=== PATIENT | female | born 1985 | race Caucasian/White ===

== ENCOUNTER 2016-08-21 17:20 | Emergency (ER) | payer MEDICAID, OTHER ==
[2016-08-21 18:06] VITALS: BP 118/67; PULSE 64; RESP 18; TEMP 98.2; O2SAT 100
--- NOTE | 2016-08-21 18:14 | ED PDOC ---
HPI: Wound Care - HPI Time Seen by Provider: 08/21/16 17:52 Chief Complaint (Nursing): Abnormal Skin Integrity Chief Complaint (Provider): wound check History Per: Patient Exam Limitations: no limitations Additional Complaint(s): Opal Morgan is a 31 year old female, with no previous medical history, who presents to the ED for the evaluation of a wound she sustained 1 month ago while in [facility]. Pt reports to tripping and falling sustaining a laceration on the chin. Pt reports to getting the laceration stitched and reports stitches were removed 1 week later also in [facility]. Pt reports to noticing blood from the laceration while cleaning the area today. Pt is concerned of a retained stitch inside. Pt denies any fever, chills, pain (contrary to triage note) or drainage from the site. Pt denies any additional complaints at this time. PMD: none provided Past Medical History Reviewed: Historical Data, Nursing Documentation, Vital Signs Vital Signs: Last Vital Signs Temp 98.2 F 08/21/16 17:48 Pulse 64 08/21/16 17:48 Resp 18 08/21/16 17:48 BP 118/67 08/21/16 17:48 Pulse Ox 100 08/21/16 17:48 - Medical History PMH: No Chronic Diseases - Family History Family History: States: Unknown Family Hx - Immunization History Hx Tetanus Toxoid Vaccination: No Hx Influenza Vaccination: No Hx Pneumococcal Vaccination: No - Home Medications Home Medications: Ambulatory Orders Medication Instructions Recorded Clotrimazole 1% Cream [Lotrimin 1% 1 applic TOP BID #2 tube 12/24/15 CREAM] Misoprostol [Cytotec] 200 mcg PO Q12 #8 tablet 01/02/16 - Allergies Allergies/Adverse Reactions: Allergies Allergy/AdvReac Type Severity Reaction Status Date / Time No Known Allergies Allergy Verified 12/24/15 12:24 Review of Systems ROS Statement: Except As Marked, All Systems Reviewed And Found Negative Constitutional: Negative for: Fever, Other (pain to wound area or drainage ) Physical Exam - Reviewed Nursing Documentation Reviewed: Yes Vital Signs Reviewed: Yes - Physical Exam Appears: Positive for: Well, Non-toxic, No Acute Distress Head Exam: Positive for: ATRAUMATIC, NORMAL INSPECTION, NORMOCEPHALIC Skin: Positive for: Normal Color, Warm, Dry. Negative for: Rash Neurologic/Psych: Positive for: Alert, Oriented Comments: Healed 1.5 cm linear wound on the chin with no surrounding erythema, swelling or break in skin integrity. No bleeding. - ECG O2 Sat by Pulse Oximetry: 100 (RA) Pulse Ox Interpretation: Normal Medical Decision Making Medical Decision Making: Initial Impression: Wound check Initial Plan: * physical exam * disposition Scribe Attestation: Documented by Neelam Villarreal, acting as a scribe for Hansel Harris PA-C. Provider Scribe Attestation: All medical record entries made by the Scribe were at my direction and personally dictated by me. I have reviewed the chart and agree that the record accurately reflects my personal performance of the history, physical exam, medical decision making, and the department course for this patient. I have also personally directed, reviewed, and agree with the discharge instructions and disposition. Disposition - Clinical Impression Clinical Impression: Visit for wound check - Patient ED Disposition Is Patient to be Admitted: No - Disposition Referrals: [facility] [Outside] Disposition: Routine/Home Disposition Time: 18:09 Condition: STABLE Additional Instructions: Use Mederma or Vitamin E ointment over wound for scar minimization. Instructions: Acute Wound Care (ED)
== END 2016-08-21 18:15 | disposition home or self-care (01) ==
LOC: H.ER 17:20
DX: Z51.89 Encounter for other specified aftercare (principal)

== ENCOUNTER 2016-09-11 20:16 | Emergency (ER) | payer OTHER ==
[2016-09-11] MEDS ORDERED: Sodium Chloride 0.9% 1,000 ML IV STA (21:42)
--- NOTE | 2016-09-11 21:48 | ED PDOC ---
HPI: Female Pain Time Seen by Provider: 09/11/16 21:44 Chief Complaint (Nursing): Female Genitourinary Chief Complaint (Provider): ABDOMINAL PAIN History Per: Patient (31 Y/O FEMALE M1 HERE FOR EVALUATION OF VAGINAL BLEEDING AND LOWER ABDOMINAL PAIN. STATES SHE HAS HAD 2 DAYS VAGINAL BLEEDING. HAS HAD SHORT MENSES 09/05. HAS MISSED DOSE OF OCP AND TOOK PLAN B SUBSEQUENTLY 08/09.) Past Medical History Reviewed: Historical Data, Nursing Documentation, Vital Signs Vital Signs: Last Vital Signs Temp 98.2 F 09/11/16 20:20 Pulse 80 09/11/16 20:20 Resp 18 09/11/16 20:20 BP 114/65 09/11/16 20:20 Pulse Ox 99 09/11/16 20:20 - Family History Family History: States: Unknown Family Hx - Immunization History Hx Tetanus Toxoid Vaccination: No Hx Influenza Vaccination: No Hx Pneumococcal Vaccination: No - Home Medications Home Medications: Ambulatory Orders Medication Instructions Recorded Clotrimazole 1% Cream [Lotrimin 1% 1 applic TOP BID #2 tube 12/24/15 CREAM] Misoprostol [Cytotec] 200 mcg PO Q12 #8 tablet 01/02/16 - Allergies Allergies/Adverse Reactions: Allergies Allergy/AdvReac Type Severity Reaction Status Date / Time No Known Allergies Allergy Verified 12/24/15 12:24 Review of Systems ROS Statement: Except As Marked, All Systems Reviewed And Found Negative Physical Exam - Reviewed Nursing Documentation Reviewed: Yes Vital Signs Reviewed: Yes - Physical Exam Appears: Positive for: Well, Non-toxic, No Acute Distress Head Exam: Positive for: ATRAUMATIC, NORMAL INSPECTION, NORMOCEPHALIC Skin: Positive for: Normal Color, Warm, DRY Eye Exam: Positive for: EOMI, Normal appearance, PERRL ENT: Positive for: Normal ENT Inspection Neck: Positive for: Normal, Painless ROM Cardiovascular/Chest: Positive for: Regular Rate, Rhythm Respiratory: Positive for: CNT, Normal Breath Sounds Gastrointestinal/Abdominal: Positive for: Normal Exam, Bowel Sounds, Soft Pelvic Exam: Positive for: Active Bleeding (small amount of bleeding noted), Tender Adnexa (tender left adnexa mild), Tender Uterus Back: Positive for: Normal Inspection Extremity: Positive for: Normal ROM Neurologic/Psych: Positive for: Alert, Oriented - Laboratory Results Result Diagrams: 09/11/16 21:52 05/04/17 21:52 - ECG O2 Sat by Pulse Oximetry: 99 - Progress ED Course And Treament: Possible intrauterine gestational sac however no yolk sac or definite pole identified. No extrauterine gestational sac identified. In a patient with a positive test, differential diagnosis includes early IUP, AB, and ectopic . Short term serial beta- hCG levels are recommended along with follow-up ultrasound. Right ovarian cyst. Thank you for allowing us to participate in the care of your patient. Dictated and Authenticated by: Neelam Ibrahim MD d/w Dr. March. Patient to return to ED in 2 days for repeat beta HCG. 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
[2016-09-11 22:00] LABS: BASO % 0.4 % (0.0-2.0); EOS # 0.1 K/uL (0.0-0.7); EOS % 0.6 % (0.0-4.0); HEMATOCRIT 36.8 % (34.0-47.0); LYMPH # 2.1 K/uL (1.0-4.3); LYMPH % 22.7 % (20.0-40.0); MEAN CELL VOLUME 89.5 fl (81.0-99.0); MEAN CORPUSCULAR HEMOGLOBIN 30.6 pg (27.0-31.0); MEAN CORPUSCULAR HGB CONC 34.2 g/dL (33.0-37.0); MEAN PLATELET VOLUME 8.3 fl (7.2-11.7); MONO # 0.6 K/uL (0.0-0.8); MONO % 6.5 % (0.0-10.0); NEUT # 6.4 K/uL (1.8-7.0); NEUT % 69.8 % (50.0-75.0); RED CELL DISTRIBUTION WIDTH 13.1 % (11.5-14.5); WHITE BLOOD COUNT 9.2 K/uL (4.8-10.8)
[2016-09-11 22:10] LABS: ALB/GLOB RATIO 1.2 (1.0-2.1); ALKALINE PHOSPHATASE 51 U/L (38-126); ALT/SGPT 32 U/L (9-52); AST/SGOT 28 U/L (14-36); BILIRUBIN,TOTAL 0.4 mg/dl (0.2-1.3); BLOOD UREA NITROGEN 8 mg/dl (7-17); CARBON DIOXIDE 25 mmol/L (22-30); CHLORIDE 104 mmol/L (98-107); GFR AFRICAN-AMERICAN > 60; GLUCOSE,RANDOM 97 mg/dL (65-105); POTASSIUM 3.6 MMOL/L (3.6-5.0); SODIUM 138 mmol/l (132-148); TOTAL PROTEIN 7.8 G/DL (6.3-8.2)
[2016-09-11 22:59] LABS: PARTIAL THROMBOPLASTIN TIME 42.2 SECONDS (23.3-32.5)
--- NOTE | 2016-09-12 00:06 | US ---
EXAM: US , Transvaginal CLINICAL HISTORY: 31 years old, female; Pain; Other: Pelvic pain; Gestational age or lmp: 08/09/16; Additional info: R/O ectopic TECHNIQUE: Real-time transvaginal obstetrical ultrasound of the maternal pelvis and a first trimester with image documentation. Transvaginal imaging was used for better evaluation of the fetus and adnexa. EXAM DATE/TIME: 09/11/2016 9:31 PM COMPARISON: No relevant prior studies available. FINDINGS: The uterus measures 7 x 3 x 5 cm. The endometrium measures 9 mm. The cervix measures 3.7 cm. There is a small round 3 mm fluid-filled structure within the lower endometrium. There is a questionable tiny echogenic structure. No ringlike structure to suggest yolk sac. There is a 1.6 cm simple cyst in the maternal right ovary. The maternal left ovary is normal. Color flow and doppler vascular waveforms were demonstrated to both maternal ovaries. No adnexal masses. No significant free fluid. IMPRESSION: Possible intrauterine gestational sac however no yolk sac or definite pole identified. No extrauterine gestational sac identified. In a patient with a positive test, differential diagnosis includes early IUP, AB, and ectopic . Short term serial beta-hCG levels are recommended along with follow-up ultrasound. Right ovarian cyst.
[2016-09-12 02:56] VITALS: BP 118/74; PULSE 79; RESP 16; TEMP 98.1; O2SAT 100
== END 2016-09-12 00:43 | disposition home or self-care (01) ==
LOC: H.ER 20:16
DX: O20.0 Threatened abortion (principal); R10.2 Pelvic and perineal pain; N83.201 Unspecified ovarian cyst, right side

== ENCOUNTER 2017-02-09 08:57 | Emergency (ER) | payer MEDICAID, OTHER ==
[2017-02-09 09:01] VITALS: BP 100/55; PULSE 74; TEMP 98; O2SAT 100; BMI 24.0
[2017-02-09 09:11] VITALS: RESP 16
--- NOTE | 2017-02-09 09:25 | ED PDOC ---
HPI: Female Pain Time Seen by Provider: 02/09/17 09:19 Chief Complaint (Nursing): Female Genitourinary History Per: Patient (Dysuria and frequency assoc with suprapubivc pain x 3 days. No fever. No imprivement with Uristat.) Onset/Duration Of Symptoms: Days (3) Severity: Mild Pain Scale Rating Of: 2 Quality Of Discomfort: Burning Associated Symptoms: Urinary Symptoms. denies: Fever, Nausea, Vomiting, Diarrhea Abnormal Vaginal Bleeding: No Past Medical History Vital Signs: Last Vital Signs Temp 98 F 02/09/17 09:00 Pulse 74 02/09/17 09:00 Resp 16 02/09/17 09:07 BP 100/55 L 02/09/17 09:00 Pulse Ox 100 02/09/17 09:00 - Medical History PMH: No Chronic Diseases - Family History Family History: States: Unknown Family Hx - Immunization History Hx Tetanus Toxoid Vaccination: No Hx Influenza Vaccination: No Hx Pneumococcal Vaccination: No - Home Medications Home Medications: Ambulatory Orders Medication Instructions Recorded Clotrimazole 1% Cream [Lotrimin 1% 1 applic TOP BID #2 tube 12/24/15 CREAM] Misoprostol [Cytotec] 200 mcg PO Q12 #8 tablet 01/02/16 Ciprofloxacin HCl [Cipro] 500 mg PO BID #20 tab 02/09/17 - Allergies Allergies/Adverse Reactions: Allergies Allergy/AdvReac Type Severity Reaction Status Date / Time Uristat Allergy RASH Uncoded 02/09/17 09:18 Review of Systems Constitutional: Negative for: Fever Gastrointestinal: Positive for: Abdominal Pain Genitourinary Female: Positive for: Dysuria, Frequency Musculoskeletal: Positive for: Back Pain Physical Exam - Physical Exam Appears: Positive for: Non-toxic, No Acute Distress Skin: Positive for: Normal Color, Warm, DRY Gastrointestinal/Abdominal: Positive for: Bowel Sounds, Soft, Tenderness ( suprapubic) Back: Positive for: Normal Inspection. Negative for: L CVA Tenderness, R CVA Tenderness Extremity: Positive for: Normal ROM Neurologic/Psych: Positive for: Alert, Oriented - ECG O2 Sat by Pulse Oximetry: 100 Disposition - Clinical Impression Clinical Impression: Urinary tract infection - Patient ED Disposition Is Patient to be Admitted: No Counseled Patient/Family Regarding: Studies Performed, Diagnosis, Need For Followup, Rx Given - Disposition Referrals: [facility] [Outside] Disposition: Routine/Home Disposition Time: 09:31 Condition: FAIR Prescriptions: Ciprofloxacin HCl [Cipro] 500 mg PO BID #20 tab Instructions: Urinary Tract Infection in Women (ED) Forms: [employer] ([place]aur[place])
== END 2017-02-09 09:37 | disposition home or self-care (01) ==
LOC: H.ER 08:57
DX: N39.0 Urinary tract infection, site not specified (principal)

== ENCOUNTER 2018-02-17 08:30 | Emergency (ER) | payer MEDICAID, OTHER ==
[2018-02-17 08:30] VITALS: BMI 24.0
[2018-02-17 08:40] VITALS: O2SAT 100
[2018-02-17] MEDS ORDERED: PROPARACAINE/FLUORESCEIN SOD 100 DROP/5 ML BOTTLE OS STA (10:34)
[2018-02-17] MEDS ORDERED: PROPARACAINE/FLUORESCEIN SOD 100 DROP/5 ML BOTTLE ONE (10:41)
--- NOTE | 2018-02-17 11:05 | ED PDOC ---
HPI: Eye Injury/Pain Time Seen by Provider: 02/17/18 09:00 Chief Complaint (Nursing): Eye Problem Chief Complaint (Provider): Eye Problem History Per: Patient History/Exam Limitations: no limitations Onset/Duration Of Symptoms: Days (x4) Current Symptoms Are (Timing): Still Present Additional Complaint(s): 32 year old female with no significant PMHx presenting for evaluation of left eye pain and swelling x4 days. Patient states the swelling began on Thursday, but the pain intensified Thursday. Patient reports some watery discharge this morning. She otherwise denies any fevers, chills, chest pain, shortness of breath, headache, or dizziness. Past Medical History Reviewed: Historical Data, Nursing Documentation, Vital Signs Vital Signs: Last Vital Signs Temp 98.4 F 02/17/18 08:38 Pulse 74 02/17/18 08:38 Resp 20 02/17/18 08:38 BP 108/67 02/17/18 08:38 Pulse Ox 100 02/17/18 08:38 - Medical History PMH: No Chronic Diseases - Surgical History Surgical History: No Surg Hx - Family History Family History: States: Unknown Family Hx - Social History Current smoker - smoking cessation education provided: No Alcohol: None Drugs: Denies - Immunization History Hx Tetanus Toxoid Vaccination: No Hx Influenza Vaccination: No Hx Pneumococcal Vaccination: No - Home Medications Home Medications: Ambulatory Orders Medication Instructions Recorded RX: Clotrimazole 1% Cream 1 applic TOP BID #2 tube 12/24/15 [Lotrimin 1% CREAM] RX: Misoprostol [Cytotec] 200 mcg PO Q12 #8 tablet 01/02/16 Ciprofloxacin HCl [Cipro] 500 mg PO BID #20 tab 02/09/17 RX: Tobramycin 0.3% [Tobrex 0.3% 1 - 2 drop OS QID #1 bottle 02/17/18 Ophth Soln] - Allergies Allergies/Adverse Reactions: Allergies Allergy/AdvReac Type Severity Reaction Status Date / Time Uristat Allergy Mild RASH Uncoded 02/17/18 08:37 Review of Systems ROS Statement: Except As Marked, All Systems Reviewed And Found Negative Constitutional: Negative for: Fever, Chills Eyes: Positive for: Pain, Eyelid Inflammation Cardiovascular: Negative for: Chest Pain Respiratory: Negative for: Shortness of Breath Neurological: Negative for: Headache, Dizziness Physical Exam - Reviewed Nursing Documentation Reviewed: Yes Vital Signs Reviewed: Yes - Physical Exam Appears: Positive for: Non-toxic, No Acute Distress Eye Exam: Positive for: EOMI, PERRL, Other ((+) chalazion under the left eyelid which is tender to palpation, (+) slight watery discharge, (-) purulent discharge, (-) periorbital cellulitis, (-) pain with movement of eye). Negative for: Conjunctival injection Neck: Positive for: Normal Neurologic/Psych: Positive for: Alert, Oriented - ECG O2 Sat by Pulse Oximetry: 100 (RA) Pulse Ox Interpretation: Normal Medical Decision Making Medical Decision Makin Impression: Left chalazion under top left eyelid causing pain. will cover with abx eye drops Plan: Patient treated w Motrin 600mg PO. Patient is stable /feels better and requires no further treatment in the ED at this time. Patient will be discharged with Rx for Tobramycin ophthalmologic. Counseling was provided and all questions were answered regarding diagnosis and need for follow up with [employer]. There is agreement to discharge plan. Return if symptoms persist or worsen. Scribe Attestation: Documented by Sai Mak, acting as a scribe for Obdulia Headley MD. Provider Scribe Attestation: All medical record entries made by the Scribe were at my direction and personally dictated by me. I have reviewed the chart and agree that the record accurately reflects my personal performance of the history, physical exam, medical decision making, and the department course for this patient. I have also personally directed, reviewed, and agree with the discharge instructions and disposition. Procedures - Eye Procedure Alcaine Drops Administered: No (flucaine drops) Eye FB Removal: other (no FB noted) Progress: did floreiscein exam on left eye: no update. no corneal abrasion. however noted left upper eyelid when i everted it see chalazion which is tender and likely causing the symptoms Disposition - Clinical Impression Clinical Impression: Chalazion of left eye - Patient ED Disposition Is Patient to be Admitted: No Counseled Patient/Family Regarding: Diagnosis, Need For Followup, Rx Given - Disposition Referrals: [facility] [Outside] Ricky Raza MD [Staff Provider] - Disposition: Routine/Home Disposition Time: 10:09 Condition: IMPROVED Additional Instructions: follow up with opthalmologist this week return to the ED with any worsening or concerning symptoms Prescriptions: RX: Tobramycin 0.3% [Tobrex 0.3% Ophth Soln] 1 - 2 drop OS QID #1 bottle Instructions: Chalazion Forms: [employer] (Romans[place])
[2018-02-17 11:18] VITALS: BP 113/81; PULSE 64; RESP 17; TEMP 98.3
== END 2018-02-17 10:50 | disposition home or self-care (01) ==
LOC: H.ER 08:30
DX: H00.16 Chalazion left eye, unspecified eyelid (principal)